=== PATIENT | female | born 1995 | race Caucasian/White ===

== ENCOUNTER 2020-11-10 13:50 | Emergency (ER) | payer OTHER ==
[~2020-11-10] VITALS: Ht 162.5 cm; Wt 69.4 kg
[~2020-11-10 13:50] MED LIST: DOXYCYCLINE100 M3 PO; OMEPRAZOLE40 MG PO
[2020-11-10] MEDS ORDERED: ZYRTEC10 M2 PO (15:04)
[2020-11-10] MEDS ORDERED: OMNICEF300 MG PO (15:04)
== END 2020-11-10 15:12 | disposition home or self-care (01) ==
LOC: ED 13:50
DX: J32.9 Chronic sinusitis, unspecified (principal); Z79.899 Other long term (current) drug therapy